=== PATIENT | female | born 1960 | race Caucasian/White ===

== ENCOUNTER 2021-08-27 03:13 | Emergency (ER) | payer BC ==
[2021-08-27 04:24] LABS: CORONAVIRUS COVID-19 NAA NEGATIVE (NEGATIVE)
[2021-08-27 04:25] LABS: ANION GAP 17.6 mEq/L (7-13)
== END 2021-08-27 05:41 | disposition home or self-care (01) ==
LOC: DL.ED 03:13
DX: R42 Dizziness and giddiness (principal); Z88.0 Allergy status to penicillin; Z20.822 Contact with and (suspected) exposure to COVID-19
CPT/HCPCS: 0240U; 36415; 71045; 80053; 83605; 84484; 85025; 93005; 99284; 93010